=== PATIENT | female | born 1990 | race African-American/Black ===

== ENCOUNTER 2018-03-15 07:41 | Emergency (ER) | payer MEDICAID ==
[~2018-03-15] VITALS: Ht 165.1 cm; Wt 66.0 kg
[2018-03-15 07:45] VITALS: BP 124/74
[2018-03-15] MEDS ORDERED: NORG1TAB53 PO (07:51)
== END 2018-03-15 12:16 | disposition home or self-care (01) ==
LOC: ER 07:41
DX: M25.562 Pain in left knee (principal); J45.909 Unspecified asthma, uncomplicated
CPT/HCPCS: 73562; 81025; 99284

== ENCOUNTER 2018-07-13 19:22 | Emergency (ER) | payer MEDICAID, MEDICARE ==
[~2018-07-13] VITALS: Ht 162.6 cm; Wt 67.0 kg
[~2018-07-13 19:22] MED LIST: NORG1TAB53 PO
[2018-07-14] MEDS ORDERED: PREDNISONE 20MG TABLET PO ONE (00:15)
[2018-07-14] MEDS ORDERED: CYCLOBENZAPRINE 10MG TABLET PO ONE (00:15)
[2018-07-14] MEDS ORDERED: KETOROLAC 60MG/2ML VIAL IM ONE (00:15)
[2018-07-14 02:18] VITALS: BP 120/75
== END 2018-07-14 02:19 | disposition home or self-care (01) ==
LOC: ER 19:22
DX: M54.30 Sciatica, unspecified side (principal); J45.909 Unspecified asthma, uncomplicated
CPT/HCPCS: 72100; 81025; 96372; 99283; J1885; J7512